=== PATIENT | male | born 1980 | race African-American/Black ===

== ENCOUNTER 2019-03-27 14:05 | Emergency (ER) | payer MEDICARE, MEDICAID ==
[~2019-03-27] VITALS: Ht 185.4 cm; Wt 102.0 kg
[~2019-03-27 14:05] MED LIST: ABILIFY; CITA20TA19
[2019-03-27] MEDS ORDERED: HYDROCODONE/ACETAMINOPHEN 5/325MG TABLET PO ONE (16:30)
[2019-03-27] MEDS ORDERED: BACITRACIN 15GM TUBE TOP ONE (16:30)
[2019-03-27 19:03] VITALS: BP 134/77
== END 2019-03-27 19:08 | disposition home or self-care (01) ==
LOC: ER 14:05
DX: S00.81XA Abrasion of other part of head, initial encounter (principal); S09.90XA Unspecified injury of head, initial encounter; M54.9 Dorsalgia, unspecified; F20.0 Paranoid schizophrenia; F43.10 Post-traumatic stress disorder, unspecified; I10 Essential (primary) hypertension; F15.10 Other stimulant abuse, uncomplicated; F17.200 Nicotine dependence, unspecified, uncomplicated; Z98.890 Other specified postprocedural states; Z88.1 Allergy status to other antibiotic agents; Z88.9 Allergy status to unspecified drugs, medicaments and biological substances; Z88.8 Allergy status to other drugs, medicaments and biological substances; Y08.89XA Assault by other specified means, initial encounter; Y93.89 Activity, other specified; Y92.89 Other specified places as the place of occurrence of the external cause; Y99.8 Other external cause status
CPT/HCPCS: 70486; 99284